=== PATIENT | female | born 1965 | race African-American/Black ===

== ENCOUNTER 2025-04-08 18:11 | Emergency (ER) | payer SELFPAY ==
[~2025-04-08] VITALS: Ht 162.6 cm; Wt 85.0 kg
[2025-04-08 18:15] VITALS: O2SAT 98
[2025-04-08 20:23] VITALS: BP 148/53; PULSE 77; RESP 16; TEMP 36.8; O2SAT 100
[2025-04-08 21:31] VITALS: TEMP 98.2
[2025-04-08] MEDS: CYCLOBENZAPRINE 10MG TABLET PO ONE (21:31)
[2025-04-08] MEDS: ACETAMINOPHEN 500MG TABLET PO ONE (21:31)
[2025-04-08] MEDS ORDERED: IBUP-2029 MT (21:42)
[2025-04-08] MEDS ORDERED: CYCL10TA21 MT (21:42)
== END 2025-04-08 22:03 | disposition home or self-care (01) ==
LOC: ER 18:11
DX: S40.021A Contusion of right upper arm, initial encounter (principal); W01.0XXA Fall on same level from slipping, tripping and stumbling without subsequent striking against object, initial encounter; Y93.89 Activity, other specified; Y92.89 Other specified places as the place of occurrence of the external cause; Y99.8 Other external cause status
CPT/HCPCS: 99284; 73030; 73080; 73110; 29125; A6449; 29105; A4565